=== PATIENT | male | born 1980 | race Caucasian/White ===

== ENCOUNTER 2017-01-10 14:19 | Inpatient (IN) | payer MEDICARE ==
[~2017-01-10] VITALS: Ht 177.8 cm; Wt 113.3 kg
[~2017-01-10 14:19] MED LIST: AMOX1TAB64 PO; ASPI-496 PO; ATOR80TA PO; CARV6.2512 PO; CLOP75TA22 PO; DIAZ10TA PO; HYDR12.53 PO; LISI5TAB7 PO; ONDA4TAB7 PO; OXYC-223 PO
[2017-01-10] MEDS ORDERED: SODIUM CHLORIDE 0.9% 1,000 ML IV ONE (15:15)
[2017-01-10] MEDS ORDERED: DIAZ10TA PO (15:25)
[2017-01-10] MEDS ORDERED: SODIUM CHLORIDE FLUSH 10ML SYR IVF ONE (15:30)
[2017-01-10] MEDS ORDERED: SODIUM CHLORIDE 0.9% 1,000ML IVBOLUS ONE (15:30)
[2017-01-10 15:50] LABS: PH, VENOUS 7.447 pH (7.320-7.420)
[2017-01-10 16:08] LABS: BLOOD UREA NITROGEN 15 mg/dL (7-18)
[2017-01-10 16:12] LABS: ASPARTATE AMINO TRANSFERASE 92 U/L (15-37)
[2017-01-10] MEDS ORDERED: SODIUM CHLORIDE FLUSH 10ML SYR IVF PRN (18:00)
[2017-01-10] MEDS ORDERED: POTASSIUM CHLORIDE 20 MEQ TAB.ER.PRT PO ONE (19:00)
[2017-01-10] MEDS ORDERED: TEMAZEPAM 15 MG CAPSULE PO PRN (19:00)
[2017-01-10] MEDS ORDERED: ENOXAPARIN 40 MG/0.4 ML SQ SCH (19:00)
[2017-01-10] MEDS ORDERED: ACETAMINOPHEN 325 MG TABLET PO PRN (19:00)
[2017-01-10 21:00] VITALS: BP 132/86
[2017-01-10] MEDS ORDERED: ATORVASTATIN 80 MG TABLET PO SCH (21:00)
[2017-01-10] MEDS: CARVEDILOL 6.25 MG TABLET PO SCH (21:00)
[2017-01-10] MEDS: metFORMIN 500 MG TABLET PO SCH (22:18)
[2017-01-10] MEDS: INSULIN REGULAR 100 UNITS/ML, 3ML VIAL SQ-INSULIN SCH (22:19)
[2017-01-11 02:00] VITALS: BP 126/80
[2017-01-11 05:13] LABS: BLOOD UREA NITROGEN 12 mg/dL (7-18)
[2017-01-11] MEDS ORDERED: POTASSIUM CHLORIDE 20 MEQ TAB.ER.PRT PO ONE ×2 (06:30→09:30)
[2017-01-11 07:19] VITALS: BP 136/84
[2017-01-11] MEDS: CARVEDILOL 6.25 MG TABLET PO SCH (08:20)
[2017-01-11] MEDS: INSULIN REGULAR 100 UNITS/ML, 3ML VIAL SQ-INSULIN SCH ×2 (08:20→11:45)
[2017-01-11] MEDS: metFORMIN 500 MG TABLET PO SCH (08:21)
[2017-01-11] MEDS ORDERED: HYDROCHLOROTHIAZIDE 12.5 MG CAPSULE PO SCH (09:00)
[2017-01-11] MEDS ORDERED: ASPIRIN 81 MG TABLET EC PO SCH (09:00)
[2017-01-11] MEDS ORDERED: LISINOPRIL 5 MG TABLET PO SCH (09:00)
[2017-01-11] MEDS ORDERED: DIAZEPAM 5 MG TABLET PO SCH (09:00)
[2017-01-11 09:58] LABS: ASPARTATE AMINO TRANSFERASE 67 U/L (15-37)
[2017-01-11] MEDS ORDERED: GLIMEPIRIDE 1 MG TABLET PO SCH (10:00)
[2017-01-11 12:46] VITALS: BP 139/79
[2017-01-11] MEDS ORDERED: METF500T PO (14:37)
[2017-01-11] MEDS ORDERED: GLIM1TAB PO (14:37)
== END 2017-01-11 16:48 | disposition home or self-care (01) | DRG 638 ==
LOC: ED 17:31 → EDIP 17:35 → 3NE 19:21
PROVIDERS: ADMIT Hospitalist; ATTEND Hospitalist
DX: E11.65 Type 2 diabetes mellitus with hyperglycemia (principal); E87.1 Hypo-osmolality and hyponatremia; E66.9 Obesity, unspecified; E78.00 Pure hypercholesterolemia, unspecified; E78.5 Hyperlipidemia, unspecified; E87.6 Hypokalemia; F10.20 Alcohol dependence, uncomplicated; R74.0 Nonspecific elevation of levels of transaminase and lactic acid dehydrogenase [LDH]; E11.41 Type 2 diabetes mellitus with diabetic mononeuropathy; Y90.9 Presence of alcohol in blood, level not specified; I11.9 Hypertensive heart disease without heart failure; I25.10 Atherosclerotic heart disease of native coronary artery without angina pectoris; Z68.36 Body mass index [BMI] 36.0-36.9, adult; I25.2 Old myocardial infarction; Z83.3 Family history of diabetes mellitus; Z95.5 Presence of coronary angioplasty implant and graft; Z88.8 Allergy status to other drugs, medicaments and biological substances; Z90.49 Acquired absence of other specified parts of digestive tract; Z79.82 Long term (current) use of aspirin; Z79.899 Other long term (current) drug therapy
CPT/HCPCS: 36415; 80053; 80061; 81003; 82010; 82803; 82962; 83036; 83690; 83735; 84439; 84443; 85025; 87040; 96361; 96365; J1815; J7030